=== PATIENT | male | born 1955 | race Asian ===

== ENCOUNTER 2017-08-15 08:13 | Day surgery (SDC) | payer OTHER ==
[2017-08-12 12:14] VITALS: BMI 30.4
[2017-08-15] MEDS ORDERED: PROPOFOL 20 ML ONE ×2 (08:17)
[2017-08-15 08:33] VITALS: TEMP 97.4
[2017-08-15 09:41] VITALS: BP 105/75; PULSE 60
== END 2017-08-15 09:55 | disposition home or self-care (01) ==
LOC: FASU-ENDO 08:13
PROVIDERS: ATTEND Internal Medicine Gastroenterology
PROC: 0DJD8ZZ Inspection of Lower Intestinal Tract, Via Natural or Artificial Opening Endoscopic (ICD-10-PCS; principal; 2017-08-15 08:56)
DX: Z86.010 Personal history of colon polyps (principal)

== ENCOUNTER → 2023-01-17 | Day surgery (SDC) | payer OTHER ==
[2023-01-14 10:53] VITALS: BMI 32.3
[2023-01-17 09:06] VITALS: TEMP 98.3
[2023-01-17 11:08] VITALS: PULSE 65
[2023-01-17 11:12] VITALS: BP 118/55; RESP 20
== END | disposition home or self-care (01) ==
LOC: FASU-ENDO 08:46
PROVIDERS: ATTEND Internal Medicine Gastroenterology
PROC: 0DJD8ZZ Inspection of Lower Intestinal Tract, Via Natural or Artificial Opening Endoscopic (ICD-10-PCS; principal; 2023-01-17 10:35)
DX: Z12.11 Encounter for screening for malignant neoplasm of colon (principal); Z86.010 Personal history of colon polyps